=== PATIENT | female | born 1990 ===

== ENCOUNTER 2024-04-18 00:08 | Inpatient (IN) | payer OTHER ==
[2024-04-18] MEDS ORDERED: Ondansetron 4 MG/2 ML SDV IVPUSH PRN (00:39)
[2024-04-18] MEDS ORDERED: Carboprost Tromethamine 250 MCG/1 mL Vial IM PRN (00:39)
[2024-04-18] MEDS ORDERED: Lidocaine 1% 50 ML MDV INJECT PRN (00:39)
[2024-04-18] MEDS ORDERED: Sodium Chloride 0.9% 20 ML SDV IV PRN (00:39)
[2024-04-18] MEDS ORDERED: Sodium Chloride 0.9% 10 ML Syringe FLUSH PRN (00:39)
[2024-04-18] MEDS ORDERED: Butorphanol 2 MG/ML SDV IVPUSH PRN (00:39)
[2024-04-18] MEDS ORDERED: Acetaminophen 325 MG Tab PO PRN (00:39)
[2024-04-18] MEDS ORDERED: Water For Irrigation,Sterile 1,000 ML Container IRR PRN (00:39)
[2024-04-18] MEDS ORDERED: Misoprostol 200 MCG Tab PO PRN (00:39)
[2024-04-18] MEDS ORDERED: Nalbuphine 10 MG/1 ML Vial IVPUSH PRN (00:39)
[2024-04-18] MEDS ORDERED: Sodium Chloride 0.9% 2.5 ML Syringe FLUSH PRN (00:39)
[2024-04-18] MEDS ORDERED: Oxytocin/0.9 % Sodium Chloride 30 UNIT/500 ML BAG IV STA (00:39)
[2024-04-18] MEDS ORDERED: Methylergonovine 0.2 MG/1 ML Amp IM PRN (00:39)
[2024-04-18] MEDS ORDERED: Lactated Ringers 1,000 ML IV SCH (00:45)
[2024-04-18] MEDS ORDERED: Oxytocin/0.9 % Sodium Chloride 30 UNIT/500 ML BAG IV SCH (00:45)
[2024-04-18 01:18] LABS: HEMATOCRIT 33.6 % (37.0-47.0); HEMOGLOBIN 11.2 g/dL (12.0-16.0); MEAN CORPUSCULAR HEMOGLOBIN 27.9 pg (28.0-32.0); MEAN CORPUSCULAR HGB CONC 33.3 g/dL (32.0-36.0); MEAN CORPUSCULAR VOLUME 83.8 fL (83.0-99.0); MEAN PLATELET VOLUME 9.8 fL (9.4-12.3); PLATELET COUNT,PLT 236 K/uL (150-400); RED BLOOD CELL COUNT 4.01 M/uL (4.10-5.30); WHITE BLOOD CELL COUNT,WBC 7.06 K/uL (3.9-11.3)
[2024-04-18] MEDS: Misoprostol 200 MCG Tab PO ONE (01:30)
[2024-04-18] MEDS: Misoprostol 25 MCG (1/4 of 100 MCG) Tab VAG PRN ×2 (01:30→05:45)
[2024-04-18 01:39] LABS: A/G RATIO 0.6 (0.9-1.6); ALBUMIN 2.5 g/dL (3.4-5.0); BILIRUBIN TOTAL 0.2 mg/dL (0.2-1.0); CALCIUM 8.2 mg/dL (8.5-10.1); CARBON DIOXIDE,CO2 24.6 mmol/L (21.0-32.0); CREATININE 0.5 mg/dL (0.6-1.0); EST CRCL DRUG DOSING (CG) 162.95 mL/min; POTASSIUM,K 3.4 mmol/L (3.5-5.1); PROTEIN TOTAL,TP 6.6 g/dL (6.4-8.2)
[2024-04-18] MEDS ORDERED: oxyCODONE 5 MG Tab PO PRN (09:56)
[2024-04-18] MEDS ORDERED: Docusate Sodium 100 MG Cap PO PRN (09:56)
[2024-04-18] MEDS ORDERED: Lanolin 100% Cream 7 GM Tube TOP PRN (09:56)
[2024-04-18] MEDS: Benzocaine/Menthol 20%-0.5% Spray 78 GM Cannister TOP PRN (12:30)
[2024-04-18] MEDS: Witch Hazel Medicated Pads 40/Jar TOP PRN (12:31)
[2024-04-18] MEDS: Ibuprofen 800 MG Tab PO PRN (12:32)
[2024-04-18] MEDS: Acetaminophen 500 MG Tab PO PRN (17:08)
[2024-04-19 05:19] LABS: HEMOGLOBIN 10.4 g/dL (12.0-16.0); MEAN CORPUSCULAR HEMOGLOBIN 27.7 pg (28.0-32.0); MEAN CORPUSCULAR HGB CONC 32.5 g/dL (32.0-36.0); MEAN CORPUSCULAR VOLUME 85.1 fL (83.0-99.0); MEAN PLATELET VOLUME 9.8 fL (9.4-12.3); PLATELET COUNT,PLT 208 K/uL (150-400); RED BLOOD CELL COUNT 3.76 M/uL (4.10-5.30); WHITE BLOOD CELL COUNT,WBC 9.97 K/uL (3.9-11.3)
[2024-04-19] MEDS: Prenatal Multivitamin with Calcium/Folic Acid/Iron Tab PO SCH (08:50)
[2024-04-19] MEDS: Ferrous Sulfate 325 MG Tab PO SCH (08:50)
== END 2024-04-19 13:40 | disposition home or self-care (01) | DRG 807 ==
LOC: MW.OB 00:08 → MW.MS 14:50 → MW.OB 14:56 → OBSVTOIN 17:30 → MW.OB 21:55
PROVIDERS: ADMIT Obstetrics & Gynecology; ATTEND Obstetrics & Gynecology
PROC: 10E0XZZ Delivery of Products of Conception, External Approach (ICD-10-PCS; principal; 2024-04-18)
PROC: 10907ZC Drainage of Amniotic Fluid, Therapeutic from Products of Conception, Via Natural or Artificial Opening (ICD-10-PCS; 2024-04-18)
PROC: 3E0P7VZ Introduction of Hormone into Female Reproductive, Via Natural or Artificial Opening (ICD-10-PCS; 2024-04-18)
DX: O24.424 Gestational diabetes mellitus in childbirth, insulin controlled (principal); Z37.0 Single live birth; O99.02 Anemia complicating childbirth; Z3A.39 39 weeks gestation of pregnancy
CPT/HCPCS: 36415; 59025; 59409; 80053; 82947; 85027; 86592; 86850; 86900; 86901; A9270-GY